=== PATIENT | male | born 1960 | race African-American/Black ===

== ENCOUNTER 2017-01-27 19:53 | Emergency (ER) | payer MEDICARE, OTHER ==
[~2017-01-27] VITALS: Ht 175.3 cm; Wt 89.1 kg
[~2017-01-27 19:53] MED LIST: ADV100 IH; ALBU8HFA IH; DOCU250C91 PO; INSLAN SQ; INSNOV SQ; OMEP20 PO; PRED1 PO
[2017-01-27 20:08] LABS: GLUCOSE,POINT OF CARE 184 MG/DL (70-110)
[2017-01-27 20:50] LABS: BASOPHILS % (AUTO) 2.1 % (0.0-2.0); EOSINOPHILS % (AUTO) 4.9 % (1.0-6.0); HEMATOCRIT 39.2 % (41-53); HEMOGLOBIN 12.9 g/dL (13.5-17.5); LYMPHOCYTES # (AUTO) 1.7 K/uL (1.0-4.8); LYMPHOCYTES % (AUTO) 33.1 % (22.0-44.0); MEAN CORPUSCULAR HEMOGLOBIN 28.6 pg (26.0-34.0); MEAN CORPUSCULAR VOLUME 86 fL (80-100); MONOCYTES # (AUTO) 0.7 K/uL (0.1-1.0); MONOCYTES % (AUTO) 14.5 % (2.0-9.0); NEUTROPHILS # (AUTO) 2.3 K/uL (1.8-7.7); NEUTROPHILS % (AUTO) 45.4 % (40.0-70.0); PLATELET COUNT (AUTO) 121 K/uL (150-450); RED BLOOD CELL COUNT(AUTO) 4.53 MIL/uL (4.50-5.90); RED CELL DISTRIBUTION WIDTH 15.1 % (11.5-14.5); WHITE BLOOD COUNT (AUTO) 5.2 K/uL (4.5-11.0)
[2017-01-27 21:07] LABS: CALCIUM, TOTAL 8.2 mg/dL (8.8-10.5); CREATININE 10.37 mg/dL (0.60-1.30); POTASSIUM 4.7 mmol/L (3.5-5.1)
[2017-01-27 21:13] LABS: ALBUMIN 3.6 g/dL (3.4-5.0); BILIRUBIN,TOTAL 0.3 mg/dL (0.1-1.0); TOTAL PROTEIN, SERUM 7.4 g/dL (6.4-8.2)
[2017-01-27] MEDS ORDERED: ALBUTEROL SULFATE 5 MG/ML 20 ML NEB SOLN [BULK] NEB ONE (22:15)
[2017-01-27] MEDS ORDERED: IPRATROPIUM BROMIDE 0.5 MG/2.5 ML NEB SOLUTION NEB ONE (22:15)
[2017-01-27 23:50] VITALS: BP 124/78
== END 2017-01-27 23:53 | disposition home or self-care (01) ==
LOC: EMS 19:55
DX: J44.1 Chronic obstructive pulmonary disease with (acute) exacerbation (principal); J40 Bronchitis, not specified as acute or chronic; R07.89 Other chest pain; E11.22 Type 2 diabetes mellitus with diabetic chronic kidney disease; I12.0 Hypertensive chronic kidney disease with stage 5 chronic kidney disease or end stage renal disease; N18.6 End stage renal disease; J45.909 Unspecified asthma, uncomplicated; Z99.2 Dependence on renal dialysis; Z79.4 Long term (current) use of insulin
CPT/HCPCS: 82962; 93005; 94640; 99285

== ENCOUNTER 2017-03-18 17:41 | Emergency (ER) | payer MEDICARE, OTHER ==
[~2017-03-18] VITALS: Ht 167.6 cm; Wt 79.3 kg
[~2017-03-18 17:41] MED LIST changes: -PRED1 PO
[2017-03-18 18:03] LABS: GLUCOSE,POINT OF CARE 139 MG/DL (70-110)
[2017-03-18] MEDS ORDERED: ALBUTEROL SULFATE 5 MG/ML 20 ML NEB SOLN [BULK] NEB ONE (18:45)
[2017-03-18] MEDS ORDERED: IPRATROPIUM BROMIDE 0.5 MG/2.5 ML NEB SOLUTION NEB ONE (18:45)
[2017-03-18] MEDS ORDERED: ACETAMINOPHEN/CODEINE 300-30 MG TABLET PO ONE (18:45)
[2017-03-18 18:46] LABS: BASOPHILS # (AUTO) 0.06 K/uL (0.00-0.20); BASOPHILS % (AUTO) 1.1 % (0.0-2.0); EOSINOPHILS # (AUTO) 0.27 K/uL (0.00-0.70); EOSINOPHILS % (AUTO) 5.16 % (1.0-6.0); HEMATOCRIT 40.4 % (41-53); HEMOGLOBIN 13.6 g/dL (13.5-17.5); LYMPHOCYTES # (AUTO) 1.6 K/uL (1.0-4.8); MEAN CORPUSCULAR HEMOGLOBIN 28.8 pg (26.0-34.0); MEAN CORPUSCULAR HGB CONC 33.6 G/dL (31.0-37.0); MEAN CORPUSCULAR VOLUME 86 fL (80-100); MONOCYTES # (AUTO) 0.6 K/uL (0.1-1.0); NEUTROPHILS # (AUTO) 2.8 K/uL (1.8-7.7); NEUTROPHILS % (AUTO) 52.8 % (40.0-70.0); PLATELET COUNT (AUTO) 114 K/uL (150-450); WHITE BLOOD COUNT (AUTO) 5.3 K/uL (4.5-11.0)
[2017-03-18] MEDS ORDERED: 0.9% SODIUM CHLORIDE 5 ML NEB SOLUTION NEB ONE (18:49)
[2017-03-18 18:56] LABS: CREATININE 11.54 mg/dL (0.60-1.30); POTASSIUM 4.2 mmol/L (3.5-5.1)
[2017-03-18 19:00] VITALS: BP 115/74
[2017-03-18 19:03] LABS: BILIRUBIN,TOTAL 0.4 mg/dL (0.1-1.0); TOTAL PROTEIN, SERUM 8.1 g/dL (6.4-8.2)
== END 2017-03-18 19:49 | disposition home or self-care (01) ==
LOC: EMS 17:43
DX: J44.1 Chronic obstructive pulmonary disease with (acute) exacerbation (principal); I12.0 Hypertensive chronic kidney disease with stage 5 chronic kidney disease or end stage renal disease; E11.22 Type 2 diabetes mellitus with diabetic chronic kidney disease; N18.6 End stage renal disease; J45.901 Unspecified asthma with (acute) exacerbation; Z99.2 Dependence on renal dialysis; Z79.4 Long term (current) use of insulin
CPT/HCPCS: 82962; 93005; 94640; 99285

== ENCOUNTER 2020-01-14 20:37 | Inpatient (IN) | payer MEDICARE, OTHER ==
[~2020-01-14] VITALS: Ht 188 cm; Wt 74.3 kg
[~2020-01-14 20:37] MED LIST changes: -DOCU250C91 PO; -INSLAN SQ
[2020-01-14 21:27] LABS: HEMOGLOBIN 13.2 g/dL (13.5-17.5); MONOCYTES # (AUTO) 0.5 K/uL (0.1-1.0)
[2020-01-14] MEDS ORDERED: ATOR20TA86 PO (21:27)
[2020-01-14] MEDS ORDERED: CINA30 PO (21:27)
[2020-01-14] MEDS ORDERED: INSU100V SQ (21:27)
[2020-01-14] MEDS ORDERED: RIFA300 PO (21:27)
[2020-01-14] MEDS ORDERED: MONT4GRA2 PO (21:27)
[2020-01-14] MEDS ORDERED: MULT-1260 PO (21:27)
[2020-01-14] MEDS ORDERED: ASPI-728 PO (21:27)
[2020-01-14] MEDS ORDERED: ACET1TAB12 PO (21:27)
[2020-01-14 21:30] LABS: BASOPHILS % (AUTO) 1.1 % (0.0-2.0); EOSINOPHILS % (AUTO) 0.7 % (1.0-6.0); HEMATOCRIT 40.6 % (41-53); LYMPHOCYTES # (AUTO) 0.6 K/uL (1.0-4.8); LYMPHOCYTES % (AUTO) 16.6 % (22.0-44.0); MEAN CORPUSCULAR HEMOGLOBIN 29.2 pg (26.0-34.0); MEAN CORPUSCULAR HGB CONC 32.5 G/dL (31.0-37.0); MEAN CORPUSCULAR VOLUME 90 fL (80-100); MONOCYTES % (AUTO) 14.6 % (2.0-9.0); NEUTROPHILS # (AUTO) 2.3 K/uL (1.8-7.7); PLATELET COUNT (AUTO) 234 K/uL (150-450); RED BLOOD CELL COUNT(AUTO) 4.53 MIL/uL (4.50-5.90); RED CELL DISTRIBUTION WIDTH 15.3 % (11.5-14.5)
[2020-01-14 22:14] LABS: ALBUMIN 3.1 g/dL (3.4-5.0); BILIRUBIN,TOTAL 0.4 mg/dL (0.1-1.0); CALCIUM, TOTAL 9.3 mg/dL (8.8-10.5); CREATININE 8.36 mg/dL (0.60-1.30); POTASSIUM 4.5 mmol/L (3.5-5.1); TOTAL PROTEIN, SERUM 9.1 g/dL (6.4-8.2)
[2020-01-14] MEDS ORDERED: ZOLPIDEM TARTRATE 5 MG TABLET PO PRN (22:45)
[2020-01-14] MEDS ORDERED: DEXTROSE 50%-WATER 25 GM/50 ML SYRINGE IVP PRN (22:45)
[2020-01-14] MEDS ORDERED: OxyCODONE HCL/ACETAMINOPHEN 5-325 MG TABLET PO PRN (22:45)
[2020-01-14] MEDS ORDERED: ACETAMINOPHEN 325 MG TABLET PO PRN (22:45)
[2020-01-15 00:01] VITALS: BP 128/73
[2020-01-15 01:19] LABS: GLUCOSE,POINT OF CARE 247 MG/DL (70-110)
[2020-01-15 05:02] VITALS: BP 137/65
[2020-01-15 06:04] LABS: GLUCOMETER DEV NAME(LOC) 5S.2A; GLUCOSE,POINT OF CARE 99 MG/DL (70-110)
[2020-01-15] MEDS: HEPARIN SODIUM,PORCINE 5,000 UNITS/ML VIAL SQ SCH ×2 (08:09→20:34)
[2020-01-15] MEDS: ASPIRIN 81 MG CHEWABLE TABLET PO SCH (08:10)
[2020-01-15] MEDS: FAMOTIDINE 20 MG TABLET PO SCH (08:10)
[2020-01-15] MEDS: DOCUSATE SODIUM 100 MG CAPSULE PO SCH ×2 (08:10→20:34)
[2020-01-15 08:21] VITALS: BP 129/80
[2020-01-15 10:58] VITALS: BP 110/68
[2020-01-15] MEDS: INSULIN LISPRO 100 UNITS/ML SQ PRN ×2 (12:09→20:37)
[2020-01-15 14:05] LABS: GLUCOMETER DEV NAME(LOC) 5S.2A; GLUCOSE,POINT OF CARE 162 MG/DL (70-110)
[2020-01-15 15:29] VITALS: BP 105/71
[2020-01-15 20:15] VITALS: BP 112/66
[2020-01-15 20:35] LABS: GLUCOMETER DEV NAME(LOC) 5N.3; GLUCOSE,POINT OF CARE 115 MG/DL (70-110)
[2020-01-15 21:50] LABS: GLUCOMETER DEV NAME(LOC) 5S.2A; GLUCOSE,POINT OF CARE 209 MG/DL (70-110)
[2020-01-16 00:41] VITALS: BP 94/72
[2020-01-16] MEDS ORDERED: SODIUM CHLORIDE 0.9% 1,000 ML ONE (02:21)
[2020-01-16 05:19] VITALS: BP 108/73
[2020-01-16 08:22] LABS: BASOPHILS % (AUTO) 0.5 % (0.0-2.0); EOSINOPHILS % (AUTO) 2.3 % (1.0-6.0); HEMATOCRIT 36.7 % (41-53); HEMOGLOBIN 11.8 g/dL (13.5-17.5); LYMPHOCYTES # (AUTO) 1.1 K/uL (1.0-4.8); LYMPHOCYTES % (AUTO) 27.4 % (22.0-44.0); MEAN CORPUSCULAR HEMOGLOBIN 28.5 pg (26.0-34.0); MEAN CORPUSCULAR HGB CONC 32.1 G/dL (31.0-37.0); MEAN CORPUSCULAR VOLUME 89 fL (80-100); MONOCYTES # (AUTO) 0.5 K/uL (0.1-1.0); NEUTROPHILS # (AUTO) 2.3 K/uL (1.8-7.7); NEUTROPHILS % (AUTO) 56.8 % (40.0-70.0); PLATELET COUNT (AUTO) 278 K/uL (150-450); RED BLOOD CELL COUNT(AUTO) 4.15 MIL/uL (4.50-5.90); RED CELL DISTRIBUTION WIDTH 15.5 % (11.5-14.5)
[2020-01-16 09:15] LABS: CALCIUM, TOTAL 8.8 mg/dL (8.8-10.5); CREATININE 12.04 mg/dL (0.60-1.30); POTASSIUM 4.1 mmol/L (3.5-5.1)
[2020-01-16 11:21] VITALS: BP 115/77
[2020-01-16] MEDS: HEPARIN SODIUM,PORCINE 5,000 UNITS/ML VIAL SQ SCH ×2 (11:39→21:41)
[2020-01-16] MEDS: DOCUSATE SODIUM 100 MG CAPSULE PO SCH ×2 (11:39→21:41)
[2020-01-16] MEDS: ASPIRIN 81 MG CHEWABLE TABLET PO SCH (11:39)
[2020-01-16] MEDS: FAMOTIDINE 20 MG TABLET PO SCH (11:39)
[2020-01-16 13:02] LABS: GLUCOMETER DEV NAME(LOC) 5S.2A; GLUCOSE,POINT OF CARE 99 MG/DL (70-110)
[2020-01-16 13:02] LABS: GLUCOMETER DEV NAME(LOC) 5S.2A; GLUCOSE,POINT OF CARE 102 MG/DL (70-110)
[2020-01-16 16:00] VITALS: BP 96/65
[2020-01-16] MEDS: INSULIN LISPRO 100 UNITS/ML SQ PRN ×2 (17:36→22:01)
[2020-01-16 18:06] LABS: GLUCOMETER DEV NAME(LOC) 5S.2A; GLUCOSE,POINT OF CARE 161 MG/DL (70-110)
[2020-01-16 20:31] VITALS: BP 97/68
[2020-01-17] VITALS (7 sets, daily range): BP systolic 90–98; BP diastolic 57–70
[2020-01-17 05:30] LABS: GLUCOMETER DEV NAME(LOC) 5S.2A; GLUCOSE,POINT OF CARE 197 MG/DL (70-110)
[2020-01-17] MEDS: DOCUSATE SODIUM 100 MG CAPSULE PO SCH ×2 (08:07→20:12)
[2020-01-17] MEDS: FAMOTIDINE 20 MG TABLET PO SCH (08:07)
[2020-01-17] MEDS: ASPIRIN 81 MG CHEWABLE TABLET PO SCH (08:07)
[2020-01-17] MEDS: HEPARIN SODIUM,PORCINE 5,000 UNITS/ML VIAL SQ SCH ×2 (08:08→20:12)
[2020-01-17] MEDS: INSULIN LISPRO 100 UNITS/ML SQ PRN ×2 (11:47→20:20)
[2020-01-17 12:15] LABS: GLUCOMETER DEV NAME(LOC) 5S.2A; GLUCOSE,POINT OF CARE 113 MG/DL (70-110)
[2020-01-17 12:15] LABS: GLUCOMETER DEV NAME(LOC) 5S.2A; GLUCOSE,POINT OF CARE 164 MG/DL (70-110)
[2020-01-18 04:30] LABS: GLUCOMETER DEV NAME(LOC) 5S.2A; GLUCOSE,POINT OF CARE 251 MG/DL (70-110)
[2020-01-18 04:30] LABS: GLUCOMETER DEV NAME(LOC) 5S.2A; GLUCOSE,POINT OF CARE 115 MG/DL (70-110)
[2020-01-18 05:39] VITALS: BP 110/68
[2020-01-18 08:10] VITALS: BP 107/64
[2020-01-18] MEDS: HEPARIN SODIUM,PORCINE 5,000 UNITS/ML VIAL SQ SCH ×2 (09:10→20:53)
[2020-01-18] MEDS: DOCUSATE SODIUM 100 MG CAPSULE PO SCH ×2 (09:10→20:54)
[2020-01-18] MEDS: ASPIRIN 81 MG CHEWABLE TABLET PO SCH (09:10)
[2020-01-18] MEDS: FAMOTIDINE 20 MG TABLET PO SCH (09:10)
[2020-01-18 11:16] VITALS: BP 112/68
[2020-01-18 16:05] VITALS: BP 98/73
[2020-01-18] MEDS: INSULIN LISPRO 100 UNITS/ML SQ PRN (20:56)
[2020-01-18 21:12] VITALS: BP 108/71
[2020-01-19 00:25] VITALS: BP 109/69
[2020-01-19 04:20] VITALS: BP 100/74
[2020-01-19] MEDS: DOCUSATE SODIUM 100 MG CAPSULE PO SCH ×2 (07:31→21:01)
[2020-01-19 07:49] VITALS: BP_SYST 117; BP_SYST 119; BP_DIAS 69; BP_DIAS 71
[2020-01-19 08:13] LABS: GLUCOMETER DEV NAME(LOC) 5S.2A; GLUCOSE,POINT OF CARE 156 MG/DL (70-110)
[2020-01-19 08:13] LABS: GLUCOMETER DEV NAME(LOC) 5S.2A; GLUCOSE,POINT OF CARE 118 MG/DL (70-110)
[2020-01-19 08:14] LABS: GLUCOMETER DEV NAME(LOC) 5N.3; GLUCOSE,POINT OF CARE 182 MG/DL (70-110)
[2020-01-19 08:14] LABS: GLUCOMETER DEV NAME(LOC) 5N.3; GLUCOSE,POINT OF CARE 88 MG/DL (70-110)
[2020-01-19 08:15] LABS: GLUCOMETER DEV NAME(LOC) 5S.2A; GLUCOSE,POINT OF CARE 95 MG/DL (70-110)
[2020-01-19] MEDS: ASPIRIN 81 MG CHEWABLE TABLET PO SCH (08:35)
[2020-01-19] MEDS: FAMOTIDINE 20 MG TABLET PO SCH (08:35)
[2020-01-19] MEDS: HEPARIN SODIUM,PORCINE 5,000 UNITS/ML VIAL SQ SCH ×2 (08:36→21:01)
[2020-01-19] MEDS ORDERED: SODIUM CHLORIDE 0.9% 2,000 ML ONE (10:08)
[2020-01-19 11:09] VITALS: BP 115/73
[2020-01-19 11:57] LABS: GLUCOMETER DEV NAME(LOC) 5N.3; GLUCOSE,POINT OF CARE 113 MG/DL (70-110)
[2020-01-19 16:26] VITALS: BP 110/65
[2020-01-19] MEDS: INSULIN LISPRO 100 UNITS/ML SQ PRN ×2 (17:38→21:09)
[2020-01-19 20:34] LABS: GLUCOMETER DEV NAME(LOC) 5N.3; GLUCOSE,POINT OF CARE 249 MG/DL (70-110)
[2020-01-19 20:37] VITALS: BP 107/60
[2020-01-20 00:23] VITALS: BP 92/59
[2020-01-20 05:30] VITALS: BP 98/64
[2020-01-20] MEDS: FAMOTIDINE 20 MG TABLET PO SCH (08:11)
[2020-01-20] MEDS: DOCUSATE SODIUM 100 MG CAPSULE PO SCH (08:12)
[2020-01-20] MEDS: ASPIRIN 81 MG CHEWABLE TABLET PO SCH (08:12)
[2020-01-20] MEDS: HEPARIN SODIUM,PORCINE 5,000 UNITS/ML VIAL SQ SCH (08:12)
[2020-01-20 09:14] VITALS: BP 105/64
[2020-01-20 12:30] VITALS: BP 94/59
[2020-01-20 16:27] VITALS: BP 106/63
[2020-01-20 19:47] LABS: GLUCOMETER DEV NAME(LOC) 5S.2A; GLUCOSE,POINT OF CARE 105 MG/DL (70-110)
[2020-01-20 19:47] LABS: GLUCOMETER DEV NAME(LOC) 5S.2A; GLUCOSE,POINT OF CARE 172 MG/DL (70-110)
[2020-01-20 20:33] LABS: GLUCOMETER DEV NAME(LOC) 5N.3; GLUCOSE,POINT OF CARE 108 MG/DL (70-110)
== END 2020-01-20 17:00 | disposition home or self-care (01) | DRG 177 ==
LOC: EMS 20:37 → 5N 22:44 → UNDOADMIN 23:00 → 5N 23:00
PROVIDERS: ADMIT Internal Medicine; ATTEND Internal Medicine
PROC: 5A1D70Z Performance of Urinary Filtration, Intermittent, Less than 6 Hours Per Day (ICD-10-PCS; principal; 2020-01-16)
PROC: 5A1D70Z Performance of Urinary Filtration, Intermittent, Less than 6 Hours Per Day (ICD-10-PCS; 2020-01-19)
DX: U07.1 COVID-19 (principal); N18.6 End stage renal disease; J12.89 Other viral pneumonia; I12.0 Hypertensive chronic kidney disease with stage 5 chronic kidney disease or end stage renal disease; J44.0 Chronic obstructive pulmonary disease with (acute) lower respiratory infection; E11.22 Type 2 diabetes mellitus with diabetic chronic kidney disease; D63.1 Anemia in chronic kidney disease; J44.9 Chronic obstructive pulmonary disease, unspecified; E21.3 Hyperparathyroidism, unspecified; Z86.15 Personal history of latent tuberculosis infection; Z99.2 Dependence on renal dialysis
CPT/HCPCS: 87340; 93005; J1644; J7030